=== PATIENT | female | born 1965 | race Caucasian/White ===

== ENCOUNTER 2018-09-13 12:46 | Emergency (ER) | payer OTHER ==
[~2018-09-13] VITALS: Ht 167.6 cm; Wt 68.0 kg
[2018-09-13] MEDS ORDERED: NOHOMEMEDICATIONS (13:14)
[2018-09-13] MEDS ORDERED: NORCO 5-325 TA1 EAC1 PO (14:18)
[2018-09-13] MEDS ORDERED: ZOFRAN ODT4 MG PO (14:22)
[2018-09-13 14:45] VITALS: BP 140/78
== END 2018-09-13 14:45 | disposition home or self-care (01) ==
LOC: M.ERS 12:46
DX: S00.03XA Contusion of scalp, initial encounter (principal); S30.0XXA Contusion of lower back and pelvis, initial encounter; R11.2 Nausea with vomiting, unspecified; Z90.49 Acquired absence of other specified parts of digestive tract; W00.0XXA Fall on same level due to ice and snow, initial encounter; Y92.89 Other specified places as the place of occurrence of the external cause; Y93.89 Activity, other specified; Y99.8 Other external cause status